=== PATIENT | female | born 1980 | race African-American/Black ===

== ENCOUNTER 2020-06-24 06:37 | Emergency (ER) | payer OTHER ==
[~2020-06-24 06:37] MED LIST: AMLODIPINE BESY10 MG PO; HCTZ25 MG PO; IBUPROFEN800 MG PO; VICTOZA 2-0.6 MG/0.1 SC
[2020-06-24 08:13] LABS: BASOPHIL 0.3 % (0-2); HCT 40.9 % (37.0-47.0); HGB 13.3 g/dl (12.5-16.0); LYMPHOCYTE 38.2 % (15-48); MCH 28.1 pg (25.0-31.0); MCHC 32.5 g/dL (32.0-36.0); MCV 86.5 fL (78.0-100.0); MONOCYTE 6.8 % (0-12); MPV 11.2 fL (6.0-9.5); NEUTROPHIL 51.3 % (41-80); NRBC 0; PLT 281 K/uL (150-400); RBC 4.73 M/uL (4.20-5.40); RDW 13.9 % (11.5-14.0); WBC 9.5 K/uL (4.0-10.5)
[2020-06-24 08:26] LABS: ALBUMIN 3.6 g/dL (3.4-5.0); BILIRUBIN - TOTAL 0.3 mg/dL (0.2-1.0); BUN/CREAT RATIO (CALC) 8.7 RATIO; CREATININE 0.69 mg/dL (0.51-0.95); GLOBULIN (CALCULATION) 4.8 g/dL; POTASSIUM 3.4 mmol/L (3.5-5.1); TOTAL PROTEIN 8.4 g/dL (6.4-8.2)
== END 2020-06-24 08:59 | disposition home or self-care (01) ==
LOC: FER 06:37
PROVIDERS: Emergency Medicine
DX: R07.89 Other chest pain (principal); I10 Essential (primary) hypertension; F17.210 Nicotine dependence, cigarettes, uncomplicated; F41.9 Anxiety disorder, unspecified; F32.9 Major depressive disorder, single episode, unspecified; Z79.899 Other long term (current) drug therapy
CPT/HCPCS: 36415; 71045; 80053; 84443; 84484; 85025; 93005

== ENCOUNTER 2020-08-09 07:29 | Emergency (ER) | payer OTHER ==
[2020-08-09 08:17] LABS: BASOPHIL 0.2 % (0-2); EOSINOPHIL 3.1 % (0-5); HCT 36.1 % (37.0-47.0); HGB 11.7 g/dl (12.5-16.0); LYMPHOCYTE 24.2 % (15-48); MCH 28.3 pg (25.0-31.0); MCHC 32.4 g/dL (32.0-36.0); MCV 87.4 fL (78.0-100.0); MONOCYTE 5.4 % (0-12); MPV 10.6 fL (6.0-9.5); NEUTROPHIL 66.6 % (41-80); NRBC 0; PLT 248 K/uL (150-400); RBC 4.13 M/uL (4.20-5.40); RDW 14.6 % (11.5-14.0); WBC 10.7 K/uL (4.0-10.5)
[2020-08-09 08:42] LABS: ALBUMIN 2.9 g/dL (3.4-5.0); BILIRUBIN - TOTAL 0.2 mg/dL (0.2-1.0); BUN/CREAT RATIO (CALC) 16.4 RATIO; CREATININE 0.55 mg/dL (0.51-0.95); GLOBULIN (CALCULATION) 4.6 g/dL; POTASSIUM 4.1 mmol/L (3.5-5.1); TOTAL PROTEIN 7.5 g/dL (6.4-8.2)
[2020-08-09 09:02] LABS: BILIRUBIN NEGATIVE (NEGATIVE); BLOOD TRACE-INTACT Ery/uL (NEGATIVE); CLARITY CLEAR (CLEAR); COLOR YELLOW (YELLOW); GLUCOSE (U) NORMAL (NORMAL); LEUKOCYTES NEGATIVE Leu/uL (NEGATIVE); NITRITE NEGATIVE (NEGATIVE); PROTEIN NEGATIVE (NEGATIVE); UROBILINOGEN 0.2 mg/dL (0.2-1.0)
[2020-08-09 09:09] LABS: BACTERIA TRACE; URINARY RBC RARE
== END 2020-08-09 09:15 | disposition home or self-care (01) ==
LOC: FER 07:29
PROVIDERS: Emergency Medicine
DX: O20.0 Threatened abortion (principal); O99.331 Smoking (tobacco) complicating pregnancy, first trimester; F17.210 Nicotine dependence, cigarettes, uncomplicated; Z3A.01 Less than 8 weeks gestation of pregnancy
CPT/HCPCS: 36415; 76801; 80053; 81001; 84702; 85025

== ENCOUNTER 2021-02-23 21:57 | Day surgery (SDCO) | payer OTHER ==
[~2021-02-23 21:57] MED LIST changes: +TRANDATE100 MG PO; +VITAMIN D325 MC1 PO
[2021-02-23 22:54] LABS: BILIRUBIN NEGATIVE (NEGATIVE); BLOOD NEGATIVE Ery/uL (NEGATIVE); CLARITY CLEAR (CLEAR); COLOR YELLOW (YELLOW); GLUCOSE (U) NORMAL (NORMAL); LEUKOCYTES 1+ Leu/uL (NEGATIVE); NITRITE NEGATIVE (NEGATIVE); PROTEIN NEGATIVE (NEGATIVE); SPECIFIC GRAVITY 1.025 (1.001-1.030); UROBILINOGEN 0.2 mg/dL (0.2-1.0)
[2021-02-23 22:57] LABS: AMORPHOUS URATES CRYSTALS TRACE; BACTERIA 2+; URINARY RBC RARE
[2021-02-23 22:58] LABS: AMPHETAMINES NEGATIVE (NEGATIVE); BARBITURATES NEGATIVE (NEGATIVE); ECSTASY (MDMA) NEGATIVE (NEGATIVE); MARIJUANA (THC) NEGATIVE (NEGATIVE); METHADONE NEGATIVE (NEGATIVE); OPIATES NEGATIVE (NEGATIVE); OXYCODONE NEGATIVE (NEGATIVE)
[2021-02-24 01:37] LABS: HCT 34.2 % (37.0-47.0); HGB 11.2 g/dl (12.5-16.0); MCH 27.9 pg (25.0-31.0); MCHC 32.7 g/dL (32.0-36.0); MCV 85.1 fL (78.0-100.0); MPV 11.2 fL (6.0-9.5); RBC 4.02 M/uL (4.20-5.40); RDW 14.8 % (11.5-14.0); WBC 15.3 K/uL (4.0-10.5)
[2021-02-24 01:53] LABS: ALBUMIN 2.5 g/dL (3.4-5.0); BILIRUBIN - TOTAL 0.2 mg/dL (0.2-1.0); BUN/CREAT RATIO (CALC) 19.6 RATIO; CREATININE 0.51 mg/dL (0.51-0.95); GLOBULIN (CALCULATION) 4.2 g/dL; POTASSIUM 3.6 mmol/L (3.5-5.1); TOTAL PROTEIN 6.7 g/dL (6.4-8.2); URIC ACID 4.7 mg/dL (2.6-6.2)
[2021-02-24 02:29] LABS: PROTEIN:CREATININE 0.17 RATIO; URINE CREATININE 251.75 mg/dL (29.00-226.00); URINE TOTAL PROTEIN-RANDOM 44.9 mg/dL (<11.9)
== END 2021-02-24 07:49 | disposition home or self-care (01) ==
LOC: FOD 21:57 → FOB 21:58
PROVIDERS: ADMIT Specialist
DX: O13.3 Gestational [pregnancy-induced] hypertension without significant proteinuria, third trimester (principal); O47.03 False labor before 37 completed weeks of gestation, third trimester; Z3A.35 35 weeks gestation of pregnancy
CPT/HCPCS: 36415; 80053; 80305; 81001; 82570; 83615; 84156; 84550; G0378

== ENCOUNTER 2021-03-01 14:04 | Inpatient (IN) | payer OTHER ==
[~2021-03-01] VITALS: Ht 160 cm; Wt 107.5 kg
[2021-03-01 14:36] LABS: BILIRUBIN NEGATIVE (NEGATIVE); BLOOD NEGATIVE Ery/uL (NEGATIVE); CLARITY CLEAR (CLEAR); COLOR YELLOW (YELLOW); GLUCOSE (U) NORMAL (NORMAL); LEUKOCYTES NEGATIVE Leu/uL (NEGATIVE); NITRITE NEGATIVE (NEGATIVE); PROTEIN NEGATIVE (NEGATIVE); SPECIFIC GRAVITY 1.015 (1.001-1.030); UROBILINOGEN 0.2 mg/dL (0.2-1.0)
[2021-03-01 14:39] LABS: AMPHETAMINES NEGATIVE (NEGATIVE); BARBITURATES NEGATIVE (NEGATIVE); ECSTASY (MDMA) NEGATIVE (NEGATIVE); MARIJUANA (THC) NEGATIVE (NEGATIVE); METHADONE NEGATIVE (NEGATIVE); OPIATES NEGATIVE (NEGATIVE); OXYCODONE NEGATIVE (NEGATIVE)
[2021-03-01 15:29] LABS: HCT 34.4 % (37.0-47.0); HGB 11.3 g/dl (12.5-16.0); MCH 27.8 pg (25.0-31.0); MCHC 32.8 g/dL (32.0-36.0); MCV 84.5 fL (78.0-100.0); MPV 11.8 fL (6.0-9.5); RBC 4.07 M/uL (4.20-5.40); RDW 15.3 % (11.5-14.0); WBC 11.7 K/uL (4.0-10.5)
== END 2021-03-01 21:46 | disposition home or self-care (01) | DRG 832 ==
LOC: FOD 14:04 → FOB 14:05 → FOD 14:52 → FOB 14:53 → FOD 14:53 → FOB 21:46
PROVIDERS: ADMIT Obstetrics & Gynecology
DX: O60.03 Preterm labor without delivery, third trimester (principal); O10.913 Unspecified pre-existing hypertension complicating pregnancy, third trimester; Z3A.35 35 weeks gestation of pregnancy; E66.01 Morbid (severe) obesity due to excess calories; Z20.822 Contact with and (suspected) exposure to COVID-19; O99.213 Obesity complicating pregnancy, third trimester; O99.333 Smoking (tobacco) complicating pregnancy, third trimester; F17.210 Nicotine dependence, cigarettes, uncomplicated
CPT/HCPCS: 36415; 80305; 81003; 86850; 86900; 86901; 96367; J0702; J7120; U0002

== ENCOUNTER 2021-03-06 12:06 | Inpatient (IN) | payer OTHER ==
[~2021-03-06] VITALS: Ht 160 cm; Wt 107.5 kg
[2021-03-06 13:25] LABS: BILIRUBIN NEGATIVE (NEGATIVE); BLOOD NEGATIVE Ery/uL (NEGATIVE); CLARITY CLEAR (CLEAR); COLOR YELLOW (YELLOW); GLUCOSE (U) NORMAL (NORMAL); LEUKOCYTES NEGATIVE Leu/uL (NEGATIVE); NITRITE NEGATIVE (NEGATIVE); PROTEIN NEGATIVE (NEGATIVE); SPECIFIC GRAVITY >=1.030 (1.001-1.030); UROBILINOGEN 0.2 mg/dL (0.2-1.0)
[2021-03-06 13:29] LABS: AMPHETAMINES NEGATIVE (NEGATIVE); BARBITURATES NEGATIVE (NEGATIVE); ECSTASY (MDMA) POSITIVE (NEGATIVE); MARIJUANA (THC) NEGATIVE (NEGATIVE); METHADONE NEGATIVE (NEGATIVE); OPIATES NEGATIVE (NEGATIVE); OXYCODONE NEGATIVE (NEGATIVE)
[2021-03-06 19:09] LABS: HCT 34.5 % (37.0-47.0); HGB 11.1 g/dl (12.5-16.0); MCH 27.5 pg (25.0-31.0); MCHC 32.2 g/dL (32.0-36.0); MCV 85.6 fL (78.0-100.0); MPV 11.9 fL (6.0-9.5); RBC 4.03 M/uL (4.20-5.40); RDW 15.7 % (11.5-14.0); WBC 17.8 K/uL (4.0-10.5)
[2021-03-06 19:19] LABS: ALBUMIN 2.6 g/dL (3.4-5.0); BILIRUBIN - TOTAL 0.2 mg/dL (0.2-1.0); BUN/CREAT RATIO (CALC) 22.8 RATIO; CREATININE 0.57 mg/dL (0.51-0.95); GLOBULIN (CALCULATION) 4.3 g/dL; POTASSIUM 3.7 mmol/L (3.5-5.1); TOTAL PROTEIN 6.9 g/dL (6.4-8.2)
[2021-03-07 16:59] LABS: HGB 11.2 g/dl (12.5-16.0); MCH 27.5 pg (25.0-31.0); MCV 85.8 fL (78.0-100.0); MPV 10.8 fL (6.0-9.5); RBC 4.08 M/uL (4.20-5.40); RDW 15.4 % (11.5-14.0); WBC 17.9 K/uL (4.0-10.5)
[2021-03-07 17:16] LABS: ALBUMIN 2.5 g/dL (3.4-5.0); BILIRUBIN - TOTAL 0.1 mg/dL (0.2-1.0); BUN/CREAT RATIO (CALC) 14.8 RATIO; CREATININE 0.61 mg/dL (0.51-0.95); GLOBULIN (CALCULATION) 4.1 g/dL; TOTAL PROTEIN 6.6 g/dL (6.4-8.2)
[2021-03-07 18:47] LABS: PROTEIN:CREATININE 0.22 RATIO; URINE CREATININE 71.79 mg/dL (29.00-226.00); URINE TOTAL PROTEIN-RANDOM 16.2 mg/dL (<11.9)
[2021-03-08 04:51] LABS: HCT 35.5 % (37.0-47.0); HGB 11.5 g/dl (12.5-16.0); MCH 27.6 pg (25.0-31.0); MCHC 32.4 g/dL (32.0-36.0); MCV 85.3 fL (78.0-100.0); MPV 10.7 fL (6.0-9.5); RBC 4.16 M/uL (4.20-5.40); RDW 15.4 % (11.5-14.0); WBC 18.6 K/uL (4.0-10.5)
== END 2021-03-09 10:55 | disposition home or self-care (01) | DRG 807 ==
LOC: FOD 12:06 → FOB 12:26 → FOD 19:04 → FOB 19:05
PROVIDERS: ADMIT Specialist
PROC: 10E0XZZ Delivery of Products of Conception, External Approach (ICD-10-PCS; principal; 2021-03-07)
DX: O36.5930 Maternal care for other known or suspected poor fetal growth, third trimester, not applicable or unspecified (principal); Z37.0 Single live birth; Z3A.36 36 weeks gestation of pregnancy; O11.5 Pre-existing hypertension with pre-eclampsia, complicating the puerperium; Z20.822 Contact with and (suspected) exposure to COVID-19; O69.81X0 Labor and delivery complicated by cord around neck, without compression, not applicable or unspecified; O62.3 Precipitate labor; O99.284 Endocrine, nutritional and metabolic diseases complicating childbirth; E28.2 Polycystic ovarian syndrome; O99.214 Obesity complicating childbirth; O99.344 Other mental disorders complicating childbirth; F32.A Depression, unspecified; Z79.899 Other long term (current) drug therapy
CPT/HCPCS: 36415; 80053; 80305; 81003; 82570; 83615; 84156; 86850; 86900; 86901; 90686; J0595; J0610; J2405; J3010; J3475; J3490; J7120; U0002